=== PATIENT | female | born 1965 ===

== ENCOUNTER 2021-07-26 17:58 | Emergency (ER) | payer SELFPAY | END 2021-07-26 21:50 | disposition left against medical advice (07) | LOC: ED 17:58 | DX: M25.561 Pain in right knee (principal); Z53.21 Procedure and treatment not carried out due to patient leaving prior to being seen by health care provider ==

== ENCOUNTER 2021-07-27 11:48 | Emergency (ER) | payer SELFPAY ==
[2021-07-27] MEDS ORDERED: IBUPROFEN 800 MG TAB PO ONE (12:15)
--- NOTE | 2021-07-27 12:16 | Emergency Department Report ---
ED Lower Extremity HPI - General Stated Complaint: RT KNEE SWOLLEN Time Seen by Provider: 07/27/21 12:15 Source: patient Mode of arrival: Ambulatory Limitations: No Limitations - History of Present Illness Initial Comments: 55 yo comes to ER sp GLF landing on her knee. No other injury. Witnessed. No down time. Fall 3 days ago but pain no better No meds [employer] [place] No hx gout Ambulatory to ER denies other complaints Complaint: knee injury -: Sudden, days(s) Injury: Knee: Right Type of Injury: blunt Place: home Severity: mild Improves With: nothing Worsens With: weight bearing Context: fall - Related Data Allergies Allergy/AdvReac Type Severity Reaction Status Date / Time No Known Allergies Allergy Verified 07/26/21 18:26 ED Review of Systems ROS: Stated complaint: RT KNEE SWOLLEN Other details as noted in HPI Comment: All other systems reviewed and negative ED Past Medical Hx - Past Medical History Previous Medical History?: No - Surgical History Past Surgical History?: No - Family History Family history: no significant - Social History Smoking Status: Never Smoker Substance Use Type: None ED Physical Exam - General General appearance: alert, in no apparent distress - Head Head exam: Present: atraumatic, normocephalic - Eye Eye exam: Present: normal appearance - ENT ENT exam: Present: mucous membranes moist - Neck Neck exam: Present: normal inspection - Respiratory Respiratory exam: Present: normal lung sounds bilaterally. Absent: respiratory distress - Cardiovascular Cardiovascular Exam: Present: regular rate, normal rhythm. Absent: systolic murmur, diastolic murmur, rubs, gallop - GI/Abdominal GI/Abdominal exam: Present: soft, normal bowel sounds - Extremities Exam Extremities exam: Present: normal inspection - Back Exam Back exam: Present: normal inspection - Neurological Exam Neurological exam: Present: alert, oriented X3 - Psychiatric Psychiatric exam: Present: normal affect, normal mood - Skin Skin exam: Present: warm, dry, intact, normal color. Absent: rash ED Course Vital Signs 07/27/21 12:14 Temperature 97.6 F Pulse Rate 85 Respiratory 16 Rate Blood Pressure 153/105 [Left] O2 Sat by Pulse 95 Oximetry ED Lower Extremity MDM - Radiology Data Radiology results: report reviewed, image reviewed nap - Medical Decision Making Vital Signs 07/27/21 12:14 Temperature 97.6 F Pulse Rate 85 Respiratory 16 Rate Blood Pressure 153/105 [Left] O2 Sat by Pulse 95 Oximetry xray neg pt has no hx htn- no cp no sob will monitor bp pt has no hx of htn- she states she gets inc bp when at doctor and when in pain. no cp or sob distal LE with normal exam -normal ankle and foot exam distal circulation intact. no effusion on exam tender over prox tibia xray neg meenu/crutches for comfort dc home with dc plan of care including ortho follow up/RICE/crutches use and OTC meds for pain. She verbalizes understanding of plan of care. - Differential Diagnosis ro fx tibia/effusion Critical care attestation.: If time is entered above; I have spent that time in minutes in the direct care of this critically ill patient, excluding procedure time. ED Disposition Clinical Impression: Elevated blood pressure reading Knee pain Qualifiers: Chronicity: acute Laterality: right Qualified Code(s): M25.561 - Pain in right knee Fall Qualifiers: Encounter type: initial encounter Qualified Code(s): W19.XXXA - Unspecified fall, initial encounter Disposition: HOME / SELF CARE / HOMELESS Is pt being admited?: No Does the pt Need Aspirin: No Condition: Stable Instructions: Acute Knee Pain, Adult Additional Instructions: rest ice elevate meenu and crutches for comfort do not use for more than 72 hours- it can cause secondary injury motrin or tylenol for pain follow up with ortho jonathan referral below Referrals: CLEVELAND CHANG MD [Staff Physician] - 3-5 Days Time of Disposition: 13:05
[2021-07-27 12:18] VITALS: BP 153/105
--- NOTE | 2021-07-27 12:44 | XRay Report ---
RIGHT KNEE 3 VIEWS INDICATION / CLINICAL INFORMATION: Right knee pain after fall. COMPARISON: None available. FINDINGS: BONES and JOINT(S): No acute fracture or subluxation. No significant arthritis. SOFT TISSUES: No significant abnormality. ADDITIONAL FINDINGS: None. IMPRESSION: 1. No acute findings. Signer Name: Daniel Benitez MD Signed: 07/27/2021 12:40 PM Workstation Name: [id number]
== END 2021-07-27 13:37 | disposition home or self-care (01) ==
LOC: ED 11:48
DX: M25.561 Pain in right knee (principal); R03.0 Elevated blood-pressure reading, without diagnosis of hypertension; W19.XXXA Unspecified fall, initial encounter; Y93.89 Activity, other specified; Y92.89 Other specified places as the place of occurrence of the external cause; Y99.8 Other external cause status
CPT/HCPCS: 99283